=== PATIENT | female | born 1950 | race Hispanic/Latino ===

== ENCOUNTER → 2017-12-29 | Outpatient (CLI) | payer OTHER ==
[~2017-12-29] MED LIST: ATOR10TA69 PO; LISI10TA7 PO; METF500T6 PO
== END | disposition home or self-care (01) ==
LOC: RAH 11:40
PROVIDERS: ATTEND Family Medicine
DX: Z12.31 Encounter for screening mammogram for malignant neoplasm of breast (principal)
CPT/HCPCS: 77067

== ENCOUNTER 2018-02-22 07:13 | Day surgery (SDC) | payer OTHER ==
[~2018-02-22] VITALS: Ht 157.5 cm; Wt 73.9 kg
[~2018-02-22 07:13] MED LIST changes: -ATOR10TA69 PO; -LISI10TA7 PO; -METF500T6 PO; +SODIUM CHLORIDE 0.9% 1000ML 1,000 ML IV ONE
[2018-02-22 08:16] VITALS: BP 137/61
[2018-02-22] MEDS ORDERED: ATOR10TA69 PO (08:35)
[2018-02-22] MEDS ORDERED: METF500T6 PO (08:35)
[2018-02-22] MEDS ORDERED: LISI10TA7 PO (08:35)
[2018-02-22] MEDS ORDERED: PROPOFOL 10 MG/ML 20ML VIAL IV ONE ×2 (09:36)
[2018-02-22] MEDS ORDERED: FENTANYL CITRATE PF 50 MCG/1 ML 2ML VIAL ONE (09:36)
[2018-02-22 09:59] VITALS: BP 86/42
== END 2018-02-22 10:30 ==
LOC: DAH 07:13 → ENDO 07:13
PROVIDERS: ATTEND Internal Medicine Gastroenterology
DX: Z12.11 Encounter for screening for malignant neoplasm of colon (principal); D12.5 Benign neoplasm of sigmoid colon; K57.30 Diverticulosis of large intestine without perforation or abscess without bleeding; I10 Essential (primary) hypertension; F32.9 Major depressive disorder, single episode, unspecified; E11.9 Type 2 diabetes mellitus without complications; Z79.84 Long term (current) use of oral hypoglycemic drugs; Z79.899 Other long term (current) drug therapy; Z90.710 Acquired absence of both cervix and uterus; Z83.3 Family history of diabetes mellitus; Z68.30 Body mass index [BMI] 30.0-30.9, adult; Z88.8 Allergy status to other drugs, medicaments and biological substances
CPT/HCPCS: 45385; 82948 ×2; 88305; 93005; J2704 ×2; J3010; J7030

== ENCOUNTER 2022-02-11 07:20 | Emergency (ER) | payer OTHER ==
[~2022-02-11] VITALS: Ht 157.5 cm; Wt 66.2 kg
[~2022-02-11 07:20] MED LIST changes: +ATOR10TA69 PO; +LISI10TA24 PO; +METF-444 PO; -SODIUM CHLORIDE 0.9% 1000ML 1,000 ML IV ONE
[2022-02-11 08:29] VITALS: BP 132/74
== END 2022-02-11 08:30 | disposition home or self-care (01) ==
LOC: EDH 07:20
DX: R20.0 Anesthesia of skin (principal); E11.9 Type 2 diabetes mellitus without complications; E78.00 Pure hypercholesterolemia, unspecified; Z79.84 Long term (current) use of oral hypoglycemic drugs; Z79.899 Other long term (current) drug therapy; Z85.43 Personal history of malignant neoplasm of ovary; Z88.6 Allergy status to analgesic agent

== ENCOUNTER → 2022-03-03 | Outpatient (CLI) | payer OTHER | END | disposition home or self-care (01) | LOC: RAH 10:11 | PROVIDERS: ATTEND Family Medicine | DX: Z12.31 Encounter for screening mammogram for malignant neoplasm of breast (principal) | CPT/HCPCS: 77067 ==